=== PATIENT | male | born 1995 | race Caucasian/White ===

== ENCOUNTER 2018-06-13 11:56 | Emergency (ER) | payer MEDICAID ==
[~2018-06-13] VITALS: Ht 180.3 cm; Wt 104.3 kg
--- NOTE | 2018-06-13 12:12 | NUR ---
Patient to ER bed 5 to gown for evaluation. Side rails up. Report given to Tamica puga.
[2018-06-13 12:15] VITALS: BP_SYST 149
--- NOTE | 2018-06-13 12:15 | NUR ---
Patient arrived to the ER c/o pain to the left foot 01/22. Patient arrived to ER bed 5 via wheel chair. Patient A&O x4. afebrile, respirations equal bilat. 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 wher he is a in-patient. Patient states pain is from "gout flairup" to left ankle, started this morning
--- NOTE | 2018-06-13 12:18 | NUR ---
ER Dr. Brito at bedside examining patient.
--- NOTE | 2018-06-13 12:29 | NUR ---
Pt c/o 01/22 pain to R ankle described as "It feels like I sprained it." Toradol 60mg IM to L deltoid administered. Pt tolerated well. Will continue to monitor.
[2018-06-13] MEDS ORDERED: KETOROLAC TROMETHAMINE 60 MG/2 ML VIAL IM ONE (12:30)
[2018-06-13 13:05] VITALS: BP_SYST 149
--- NOTE | 2018-06-13 13:05 | NUR ---
Patient given written and verbal discharge instructions and verbalizes understanding. ER MD discussed with patient the results and treatment provided. Patient in stable condition. ID arm band removed. No Rx given. Patient educated on pain management and to follow up with PMD. Pain Scale 8/10 and tolerable for pt . Opportunity for questions provided and answered. Medication side effect fact sheet provided. Pt of [facility], accompanied by staff of facility and gave discharge orders to [place] RN poker supervisor via cellphone of accompanying [facility] staff.
== END 2018-06-13 13:05 | disposition home or self-care (01) ==
LOC: SED 11:56
DX: M10.072 Idiopathic gout, left ankle and foot (principal)
CPT/HCPCS: 96372; 99283; J1885

== ENCOUNTER 2018-07-07 20:44 | Emergency (ER) | payer MEDICAID ==
[~2018-07-07] VITALS: Ht 180.3 cm; Wt 123.4 kg
[2018-07-07 21:21] VITALS: BP_SYST 154
--- NOTE | 2018-07-07 21:26 | NUR ---
Pt placed to ER waiting room in stable condition. Emesis bag provided.
--- NOTE | 2018-07-07 22:18 | NUR ---
Patient to ER bed [address] to gown for evaluation. Side rails up. Report given to NIRAV PRAKASH.
--- NOTE | 2018-07-07 22:20 | NUR ---
Pt brought by family member,A&Ox4, pt presents to ER with abdominal pain, N/V, skin pink and warm, cap refill <2, VSS, respirations even and unlabored.
--- NOTE | 2018-07-07 22:21 | NUR ---
ER at bedside examining patient.
[2018-07-07] MEDS: ONDANSETRON HCL 4 MG/2 ML VIAL IVP ONE (22:48)
[2018-07-07] MEDS: NACL 0.9% 1,000 ML IV ONE (22:48)
[2018-07-07 23:01] LABS: HEMOGLOBIN 14.8 g/dL (14.0-18.0); MEAN CORPUSCULAR HEMOGLOBIN 30 pg (27-31); MEAN CORPUSCULAR HGB CONC 34 % (32-36); MEAN CORPUSCULAR VOLUME 89 fL (79.0-98.0); PLATELET COUNT (AUTO) 291 K/uL (130-430); RED BLOOD CELL COUNT(AUTO) 4.96 MIL/uL (4.2-6.2); RED CELL DISTRIBUTION WIDTH 14.2 % (9.0-15.0); WHITE BLOOD COUNT (AUTO) 12.2 K/uL (4.8-10.8)
[2018-07-07] MEDS: MORPHINE 4 MG/ML INJ. SYRINGE IVP ONE (23:01)
[2018-07-07 23:02] LABS: BASOPHILS # (AUTO) 0.1 K/uL (0.0-0.2); BASOPHILS % (AUTO) 0.6 % (0.0-2.0); EOSINOPHILS # (AUTO) 0.1 K/uL (0.0-0.4); EOSINOPHILS % (AUTO) 1.2 % (0.0-4.0); LYMPHOCYTES # (AUTO) 2.1 K/uL (1.0-5.5); LYMPHOCYTES % (AUTO) 17.2 % (20.5-51.5); MONOCYTES # (AUTO) 0.6 K/uL (0.0-1.0); MONOCYTES % (AUTO) 5.3 % (1.7-9.3); NEUTROPHILS # (AUTO) 9.3 K/uL (1.8-7.7); NEUTROPHILS % (AUTO) 75.7 % (40.0-70.0)
[2018-07-07 23:18] LABS: CALCIUM 9.5 mg/dL (8.4-11.0); CREATININE 0.82 mg/dL (0.55-1.30)
--- NOTE | 2018-07-07 23:20 | NUR ---
Report given to Henrique PRAKASH
[2018-07-07 23:24] LABS: ALBUMIN 4.4 g/dL (3.4-4.8); TOTAL BILIRUBIN 0.4 mg/dL (0.0-1.0)
[2018-07-07 23:42] VITALS: BP_SYST 138
--- NOTE | 2018-07-07 23:42 | NUR ---
Patient given written and verbal discharge instructions and verbalizes understanding. ER MD discussed with patient the results and treatment provided. Patient in stable condition. ID arm band removed. IV catheter removed intact and dressing applied, no active bleeding. Rx of Zofran given. Patient educated on pain management and to follow up with PMD. Pain Scale 0/10. Opportunity for questions provided and answered. Medication side effect fact sheet provided.
== END 2018-07-07 23:42 | disposition home or self-care (01) ==
LOC: SED 20:44
DX: T62.8X1A Toxic effect of other specified noxious substances eaten as food, accidental (unintentional), initial encounter (principal); R11.10 Vomiting, unspecified; R03.0 Elevated blood-pressure reading, without diagnosis of hypertension; Y92.89 Other specified places as the place of occurrence of the external cause
CPT/HCPCS: 36415; 80053; 83690; 85025; 96361; 96374; 96375; 99283; J2270; J2405; J7030